=== PATIENT | female | born 1960 | race Caucasian/White ===

== ENCOUNTER → 2018-08-24 11:20 | Outpatient (CLI) | payer OTHER, SELFPAY ==
[2018-08-27 13:54] LABS: HPV Reflexed? NOT INDICATED
== END ==
PROVIDERS: Visit Provider Obstetrics & Gynecology
DX: Z12.4 Encounter for screening for malignant neoplasm of cervix (principal)
CPT/HCPCS: 88175; G0145

== ENCOUNTER → 2018-11-05 09:38 | Outpatient (CLI) | payer OTHER, SELFPAY ==
--- NOTE | 2018-11-05 09:42 | BI_ITS ---
MAMMOGRAPHY - BILATERAL SCREENING REASON FOR EXAM: Female, 57 years old. Routine annual screening examination. PERTINENT HISTORY: Aunt with breast cancer. History of prior ultrasound-guided right breast biopsy. TECHNIQUE: Digital bilateral breast billy (3D mammographic acquisition) in the CC and MLO projections. 2-D mediolateral oblique (MLO) and craniocaudad (CC) views of both breasts were obtained. CAD: Full Field Digital Mammography with Computer Added Detection was performed. COMPARISON: Comparison is made with prior study dated December 14, 2016 and December 18, 2016. FINDINGS: Breast Composition: The breasts are heterogeneously dense, which may obscure small masses. There are no dominant masses or suspicious calcifications. Stable 7.5 mm x 10.6 mm well-defined nodular density in the upper lateral anterior aspect of the right breast. This most likely represents a small lymph node. Stable calcifications in the central midportion of the left breast. A tissue clip marker is seen in the superior lateral retroareolar region of the right breast No other significant abnormalities are identified. There has been no significant change since the prior study. BI/SCREENING MAMM (CAD), BILAT IMPRESSION: Stable bilateral screening mammogram. Yearly follow-up mammogram recommended. (A) ASSESSMENT CATEGORY: BIRADS Category 2: Benign. A letter regarding these results will be sent to the patient by the facility within 30 days. Approximately 10% of breast cancers are not detected by mammography. A normal mammogram should not delay biopsy of a clinically suspicious abnormality. [id number] Electronically Signed: Michael Early MD at 9:45 EST , Service support ,
== END ==
PROVIDERS: Referring Provider Obstetrics & Gynecology; Visit Provider Obstetrics & Gynecology
DX: Z12.31 Encounter for screening mammogram for malignant neoplasm of breast (principal)
CPT/HCPCS: 77063; 77067

== ENCOUNTER → 2019-10-10 13:16 | Outpatient (CLI) | payer SELFPAY ==
[2019-10-16 20:07] LABS: Age Gdln ACOG Testing 30-65 (.)
[2019-10-17 09:40] LABS: HPV APTIMA, High Risk Negative (Negative)
[2019-10-17 09:41] LABS: HPV Reflexed? YES, CHARGE PATIENT
== END ==
PROVIDERS: Referring Provider Obstetrics & Gynecology; Visit Provider Obstetrics & Gynecology
DX: Z12.4 Encounter for screening for malignant neoplasm of cervix (principal)
CPT/HCPCS: 87624; 88175; G0145

== ENCOUNTER → 2020-03-28 08:32 | Outpatient (CLI) | payer SELFPAY ==
--- NOTE | 2020-03-28 08:36 | BI_ITS ---
MAMMOGRAPHY - BILATERAL SCREENING REASON FOR EXAM: Female, 59 years old. Routine annual screening examination. PERTINENT HISTORY: Aunt with breast cancer. TECHNIQUE: Digital bilateral breast cam (3D mammographic acquisition) in the CC and MLO projections. 2-D mediolateral oblique (MLO) and craniocaudad (CC) views of both breasts were obtained. CAD: Full Field Digital Mammography with Computer Added Detection was performed. COMPARISON: Comparison is made with prior examination dated November 05, 2018 and August 26, 2017. FINDINGS: Breast Composition: The breasts are heterogeneously dense, which may obscure small masses. There are no dominant masses or suspicious calcifications. 2 tissue markers are seen in the superior lateral anterior aspect of the right breast. Stable 7.5 mm x 9.6 mm well-defined nodule in the upper anterior lateral portion of the right breast where a central notch suggestive of a lymph node. Stable microcalcifications in the central upper aspect of the left breast. Stable benign-appearing bilateral axillary lymph nodes. No other significant abnormalities are identified. There has been no significant change since the prior study. BI/SCREEN MAMM (CAD) W/CAM BILAT IMPRESSION: Stable bilateral screening mammogram. Yearly follow-up mammogram recommended. (A) ASSESSMENT CATEGORY: BIRADS Category 2: Benign. A letter regarding these results will be sent to the patient by the facility within 30 days. Approximately 10% of breast cancers are not detected by mammography. A normal mammogram should not delay biopsy of a clinically suspicious abnormality. [id number] Electronically Signed: Michael Early, at 9:47 EDT , Service support ,
== END ==
PROVIDERS: Referring Provider Obstetrics & Gynecology; Visit Provider Obstetrics & Gynecology
DX: Z12.31 Encounter for screening mammogram for malignant neoplasm of breast (principal)
CPT/HCPCS: 77063; 77067

== ENCOUNTER → 2021-04-11 15:15 | Outpatient (CLI) | payer SELFPAY ==
--- NOTE | 2021-04-11 15:18 | BI_ITS ---
MAMMOGRAPHY - BILATERAL SCREENING REASON FOR EXAM: Female, 60 years old. Routine annual screening examination. PERTINENT HISTORY: Aunt with breast cancer. History of prior right ultrasound-guided breast biopsy. TECHNIQUE: Digital bilateral breast cam (3D mammographic acquisition) in the CC and MLO projections. 2-D mediolateral oblique (MLO) and craniocaudad (CC) views of both breasts were obtained. CAD: Full Field Digital Mammography with Computer Added Detection was performed. COMPARISON: Comparison is made with prior study dated 03/28/2020 and 11/05/2018. FINDINGS: Breast Composition: The breasts are heterogeneously dense, which may obscure small masses. There are no dominant masses or suspicious calcifications. Once again, 2 tissue markers are seen in the superior lateral anterior aspect of the right breast. Stable 7.5 mm x 1 mm well-defined nodule in the upper anterior lateral portion of the right breast. A central notch is seen suggestive of a lymph node. Stable microcalcifications in the central upper aspect of the left breast. No other significant abnormalities are identified. There has been no significant change since the prior study. BI/SCRN MAMM (CAD)W/CAM BILAT IMPRESSION: Stable bilateral screening mammogram. Yearly follow-up mammogram recommended. (A) ASSESSMENT CATEGORY: BIRADS Category 2: Benign. A letter regarding these results will be sent to the patient by the facility within 30 days. Approximately 10% of breast cancers are not detected by mammography. A normal mammogram should not delay biopsy of a clinically suspicious abnormality. [id number] Electronically Signed: Michael Early MD at 9:11 EDT , Service support ,
== END ==
PROVIDERS: PCP Nurse Practitioner Family; Referring Provider Nurse Practitioner Family; Visit Provider Nurse Practitioner Family
DX: Z12.31 Encounter for screening mammogram for malignant neoplasm of breast (principal)
CPT/HCPCS: 77063; 77067

== ENCOUNTER → 2022-07-03 | Outpatient (CLI) | payer SELFPAY ==
[2022-07-21 12:50] LABS: HPV APTIMA, High Risk Negative
== END | disposition home or self-care (01) ==
PROVIDERS: PCP Nurse Practitioner Family; Visit Provider Student in an Organized Health Care Education/Training Program
DX: Z12.4 Encounter for screening for malignant neoplasm of cervix (principal)
CPT/HCPCS: 87624; 88175; G0145

== ENCOUNTER → 2022-07-08 | Outpatient (CLI) | payer SELFPAY ==
--- NOTE | 2022-07-08 14:05 | BI_ITS ---
MAMMOGRAPHY - BILATERAL SCREENING REASON FOR EXAM: Female, 61 years old. Routine annual screening examination. PERTINENT HISTORY: Aunt with breast cancer. History of prior right needle breast biopsy. TECHNIQUE: Digital bilateral breast cam (3D mammographic acquisition) in the CC and MLO projections. 2-D mediolateral oblique (MLO) and craniocaudad (CC) views of both breasts were obtained. CAD: Full Field Digital Mammography with Computer Added Detection was performed. COMPARISON: Comparison is made with prior study 04/11/2021 and 03/28/2020. FINDINGS: Breast Composition: The breasts are heterogeneously dense, which may obscure small masses. There are no dominant masses or suspicious calcifications. Once again, 2 adjacent tissue marker seen in the anterior central lateral aspect of the right breast. Stable 7.5 mm x 1 mm well-defined nodule in the upper anterior lateral aspect of the right breast. This is suggestive of a small lymph node. Since prior study, there has been progression of microcalcifications in the central depth of the left breast. Biopsy recommended. No other significant abnormalities are identified. BI/SCRN MAMM (CAD)W/CAM BILAT IMPRESSION: Interval increase in the cluster microcalcification in the central portion of the left breast as described. Biopsy recommended. ASSESSMENT CATEGORY: BIRADS Category 4: Suspicious - Biopsy Should Be Considered. A letter regarding these results will be sent to the patient by the facility within 30 days. Approximately 10% of breast cancers are not detected by mammography. A normal mammogram should not delay biopsy of a clinically suspicious abnormality. [id number] Electronically Signed: Michael Early MD at 14:57 EDT ,
== END | disposition home or self-care (01) ==
LOC: OPBI 14:00
PROVIDERS: PCP Nurse Practitioner Family; Visit Provider Student in an Organized Health Care Education/Training Program
DX: Z12.31 Encounter for screening mammogram for malignant neoplasm of breast (principal); Z80.3 Family history of malignant neoplasm of breast
CPT/HCPCS: 77063; 77067

== ENCOUNTER → 2022-07-17 | Outpatient (CLI) | payer SELFPAY ==
--- NOTE | 2022-07-17 | BRBX_PTH ---
PATIENT: SHIRLEY ORO LOC: [facility] U#:[id number] AGE/SX: 61/F ROOM: RE07/17/[address]: Dr. Holly Pisano MD : 1960 BED: DIS: 07/17/2022 SPEC #: [id number] RECD: 07/17/22 13:43 STATUS: STAR REOlivia #: [id number] KAYA: 07/17/22 00:[address]: Holly Pisano DEPT: SURGICAL PATHOLOGY RECD BY: Garcia Martinez ENTERED: 07/17/22 13:43 SP TYPE: BREAST BX JOE DR: Sybil Sal, ASSISTANT PROFESSOR OF FORESTRY-C Tissues: Left breast, NOS Procedures: Surgery Specimen Level IV HEADER OPERATION: Left breast stereotactic biopsy PRE-OP DIAGNOSIS: Left breast microcalcifications central depth TISSUE SUBMITTED: Left breast core tissue ISCHEMIC TIME: 1 minute FIXATION TIME: 59.5 hours MICROSCOPIC DIAGNOSIS Left breast, stereotactic core biopsy: Hyalinized fibroadenoma with calcifications. Negative for atypia or malignancy. See comment. SJ:teo 07/20/2022 COMMENT Correlation with clinical, radiologic findings and appropriate follow up are necessary. MICROSCOPIC DESCRIPTION Slides are reviewed. GROSS DESCRIPTION Received in fixative is one container labeled with the patient's name and designated left breast. The specimen consists of multiple irregular and elongated fragments of mcclellan-yellow soft tissue that in aggregate measure 3 x 2.5 x 0.2 cm. The specimen is totally submitted in one cassette. / AM:eto 07/17/2022 TC:1 CPT: 77188
--- NOTE | 2022-07-17 08:31 | OP.PCM_ITS ---
Report of Operation Date of Procedure: 07/17/22 Pre-Operative Diagnosis: Left breast microcalcifications Post-Operative Diagnosis: Same Surgery/Procedure Performed:: Stereotactic left breast biopsy Surgeon: Holly Pisano Type of Anesthesia: Local Specimen's removed: left breast microcalcifications?central depth Estimated Blood Loss (mL): Minimal Description of Procedure: Procedure: Left stereotactic core biopsy Indications: 61year-old female with microcalcifications in the central depth of the left breast. Risk benefits were discussed the patient and she elected to proceed with stereotactic core biopsy with clip placement Description of procedure: Patient was brought into the mammography suite and laid prone on the stereotactic table. A timeout was completed verifying correct patient, procedure, site, specially, prior to beginning procedure. The left breast was prepped and draped in usual sterile fashion and using local anes thesia was obtained with 1% lidocaine with epi. Patient's left breast was positioned and placed into compression. Initial film showed calcifications are in the center of the compression paddle. 15? views were then taken. The calcifications were localized. The left breast was prepped draped in usual sterile fashion. An 8-gauge mammotome was set up according to the digital coordinates. The tract of the mammotome was anesthetized with local anesthesia and an incision was made with the 11 blade scalpel at the entry site. The mammotome was advanced to the prefire state. Pre-prior films were checked and verified. The mammotome was fired. Post fire films were also checked and verified. Biopsies were taken from 11:00 to 4:00. The specimen was x-rayed and the majority of the calcifications were within the specimen. Mammotome clip?bowtie was placed at the 12 o'clock position. The mammotome was removed from the breast. An additional films were taken which showed all calcifications were removed and a clip was in place. Pressure was held for hemostasis. Once hemostasis was assured the wound was dressed with Steri-Strips and OpSite. Additional 2 view mammography was used to verify clip. Clip was verified. The patient tolerated the procedure well and was discharged from the mammography suite good condition. Complications none
== END | disposition home or self-care (01) ==
PROVIDERS: PCP Nurse Practitioner Family; Visit Provider Surgery
DX: R92.0 Mammographic microcalcification found on diagnostic imaging of breast (principal); N60.22 Fibroadenosis of left breast
CPT/HCPCS: 19081; 88305; J7050; A4648

== ENCOUNTER 2022-08-13 06:00 | Day surgery (SDC) | payer SELFPAY ==
[2022-08-13] VITALS (7 sets, daily range): BP systolic 108–133; BP diastolic 56–71; PULSE 62–95; RESP 16; TEMP 36.1–36.8; O2SAT 93–99; BMI 30.2
--- NOTE | 2022-08-13 | EMB_PTH ---
PATIENT: SHIRLEY ORO LOC: [facility] [place] U#:[id number] AGE/SX: 61/F ROOM: RE08/13/[address]: Dr. Natalee Garay DO : 1960 BED: DIS: 08/13/2022 SPEC #: [id number] RECD: 08/13/22 12:37 STATUS: STAR JOSE #: [id number] KAYA: 08/13/22 00:[address]: Natalee Garay DEPT: SURGICAL PATHOLOGY RECD BY: Garcia Martinez ENTERED: 08/13/22 12:37 SP TYPE: ENDOM BX/C JOE DR: Alejandra Louis, ADVERTISING SOLICITOR-C Tissues: Endometrium, NOS Procedures: Surgery Specimen Level IV HEADER OPERATION: Hysteroscopy, dilation and curettage, polypectomy, Symphion PRE-OP DIAGNOSIS: Postmenopausal bleeding TISSUE SUBMITTED: Endometrial curettings and polyp MICROSCOPIC DIAGNOSIS Endometrial curettings and polyp: Polypoid fragments of simple hyperplasia without atypia. AM:teo 08/14/2022 MICROSCOPIC DESCRIPTION Slides are reviewed. GROSS DESCRIPTION Received in fixative is one container labeled with the patient's name and designated endometrial curettings and polyp. The specimen consists of multiple irregular and rubbery fragments of pink-white soft tissue that in aggregate measure 4 x 3 x 0.5 cm. The larger fragments are sectioned totally submitted along with the smaller fragments in two cassettes. / AM:teo 08/13/2022 TC:5 CPT: 45725
[2022-08-13] MEDS: Lactated Ringers 1,000 ML 15 ML IV (06:52)
--- NOTE | 2022-08-13 07:01 | HP.PCM.OB_ITS ---
History and Physical Date of Admission: 08/13/22 HPI: 61-year-old female presenting for hysteroscopy, dilation and curettage for postmenopausal bleeding. Denies fevers or chills, headache or vision changes, chest pain or shortness of breath, nausea or vomiting, diarrhea or constipation. Medical history 1. Cardiac Surgical history: Cholecystectomy, tonsillectomy Medications: Verapamil Family history: Noncontributory no issues with anesthesia Social history: Denies tobacco, alcohol, drug use Allergies: Aspirin, naproxen Review of system: Negative otherwise stated above Physical exam BP 133/60 heart rate 77, respirations 16 temp 98.2 degrees of Fahrenheit O2 sat 99% on room air General: No acute distress HEENT normocephalic, atraumatic Cardiac: Regular rate and rhythm Respiratory: Clear to auscultation bilaterally Abdomen: Soft, nontender nondistended Extremities: No edema Neurologic: Cranial nerves II through XII grossly intact, no focal deficits Musculoskeletal: Strength out of 5 throughout extremities Assessment/plan:61-year-old female presenting for hysteroscopy, dilation and curettage for postmenopausal bleeding. All risk, benefits, alternatives discussed with the patient. Risk include but not limited to: Risk of bleeding when transfusion, infection, injury to surrounding tissue including bowel/bladd er/uterine perforation, VTE, ICU admission. Patient aware and consented.
--- NOTE | 2022-08-13 08:19 | PCM.OPRPT ---
Report of Operation Date of Procedure: 08/13/22 Pre-Operative Diagnosis: Postmenopausal bleeding Post-Operative Diagnosis: Postmenopausal bleeding, endometrial polyp Surgery/Procedure Performed:: Hysteroscopy, dilation curettage, polypectomy Description of Surgical Findings:: Normal-appearing external genitalia. Good uterine descensus. Large endometrial polyp spanning from fundus to lower uterine segment and upper cervix. Type of Anesthesia: MAC Specimen's removed: Endometrial curettings, endometrial polyp Estimated Blood Loss (mL): 5 cc Fluids Replaced: 1000 cc Description of Procedure: Indication/risk/benefits: 61-year-old female with postmenopausal bleeding. Plan for hysteroscopy, dilation curettage. All risk, benefits, alternatives discussed with patient. Risk include but are not limited to: Risk of bleeding to the point transfusion, infection, injury to surrounding tissue including bowel/bladder/uterine perforation, VTE, ICU admission. Patient aware and consented. Procedure: Patient taken to the operating room and MAC anesthesia induced. Patient placed in the dorsal lithotomy position and prepped and draped in the usual sterile fashion. Weighted speculum placed in posterior vagina and Solo retractor used to visualize the cervix. Anterior lip of cervix grasped with Allis clamp. Cervix sequentially dilated. Hysteroscope placed through cervical canal with inspection of endometrial cavity noting findings as stated above. Hysteroscope removed. Attempted to remove polyp with polyp forceps, and long Heidi clamp. Portion of polyp able to be removed. Attempted removal with curettage. Minimal sample was removed with this manner. As unable to remove polyp with clamps or curetting, decision to utilize Symphion device was made. Symphion on was utilized to remove portion of the polyp, however a large amount of fluid loss was occurring back through the cervix, therefore the complete polypectomy was unable to be performed. Large amount of fluid was noted in the bucket, which was back flowing through the cervix. Due to this Symphion device was removed. Additional portion of polyp with forceps was completed. Decision to end case at that time was made. Allis clamp removed, cervix hemostatic. Retractors removed. At the end of the procedure all needle, lap, sponge counts were correct. Fluid deficit 500cc, majority of loss was backflow through dilated cervix. Urine output not measured.
--- NOTE | 2022-08-13 08:26 | DCINST_ITS ---
Discharge Instructions Diet Discharge Diet: No restrictions Activity Discharge Activity: Return to Normal Activity and May Shower May resume sexual activity in: 2 weeks Weight Bearing Status: Weight bearing as tolerated Lifting Restrictions: None Dressing / Incision Call your doctor if you observe: Fever of 101 or Higher, Change in Color, Inability to urinate, Using more than 1 pad per hour, Shortness of breath, Dizziness, Swelling in the ankles, Chest pain and Calf discomfort Follow Up Care Please Follow Up With: Natalee Garay DO When: 1-2 week postoperative visit Test Results: Test results from this visit will be discussed in further detail at your follow- up appointment, if applicable. Discharge Plan Admission Primary Reason for Your Visit: Hysteroscopy, dilation and currettage Attending Provider: Natalee Garay Primary Care Provider: Alejandra Loius NP Discharge Orders/Prescriptions Prescriptions: No Action verapamil 80 mg tablet 180 mg PO DAILY Referrals / Follow Up: Alejandra Louis NP, STATISTICAL MACHINE MECHANIC-C [Primary Care Provider] - Disposition Disposition (needs filled in before D/C Order can be placed): Home, Self Care
== END 2022-08-13 10:40 | disposition home or self-care (01) ==
LOC: SDC 06:05 → AC 06:08
PROVIDERS: PCP Nurse Practitioner Primary Care; Referring Provider Student in an Organized Health Care Education/Training Program; Visit Provider Student in an Organized Health Care Education/Training Program
PROC: 0UDB8ZZ Extraction of Endometrium, Via Natural or Artificial Opening Endoscopic (ICD-10-PCS; CPT 58558; principal; 2022-08-13 07:20)
DX: N95.0 Postmenopausal bleeding (principal); N85.01 Benign endometrial hyperplasia
CPT/HCPCS: 58558; 00952; 88305; J7120; J2405

== ENCOUNTER 2022-12-31 10:50 | Day surgery (SDC) | payer SELFPAY ==
[2022-12-25 11:18] LABS: Hematocrit 41.4 % (37-47); Hemoglobin 13.7 g/dL (12.0-15.0); Mean Corp Hgb Conc 33.1 g/dL (32-36); Mean Corpuscular Hgb 31.1 pg (27.0-32.0); Mean Corpuscular Volume 94.1 fL (81-99); Mean Platelet Vol. 8.9 fl (6.2-12.0); Platelet Count 348 K/mm3 (150-450); RBC Distribution Width CV 12.8 % (11.6-14.6); RBC Distribution Width SD 44.4 fl (35.1-43.9); White Blood Count 7.3 K/mm3 (4.4-11.0)
[2022-12-31] VITALS (7 sets, daily range): BP systolic 99–119; BP diastolic 53–70; PULSE 64–76; RESP 16–18; TEMP 36.6–37.1; O2SAT 96–98; BMI 30.2
[2022-12-31] MEDS: Lactated Ringers 1,000 ML 15 ML IV (11:30)
[2022-12-31 11:43] LABS: Anion Gap 8 (5-15); BUN 12 mg/dL (7-18); BUN/Creat Ratio 17.1 RATIO (10-20); Calcium,Total 9.5 mg/dL (8.5-10.1); Chloride 111 mmol/L (98-107); EST Glomerular Filtration Rate 90 mL/min (>60); Est Glom Filt Rate - Afr Amer 109 mL/min (>60); Estimated Creatinine Clearance 77.01 ml/min; Glucose 99 mg/dL (74-106); Potassium 3.9 mmol/L (3.5-5.1); Sodium Level 142 mmol/L (136-145)
--- NOTE | 2022-12-31 12:36 | HP.PCM.OB_ITS ---
History and Physical Date of Admission: 12/31/22 HPI: 62-year-old female with history of benign endometrial hyperplasia plan for hysteroscopy, dilation and curettage, polypectomy.? Denies headache or vision changes, chest pain or shortness of breath, nausea or vomiting, diarrhea constipation, fevers or chills. FRUIT PICKER history: Medical history: 1.? Benign endometrial hyperplasia 2. Cardiac Surgical history: 1.? Hysteroscopy, dilation and curettage, polypectomy 2. Cholecystectomy 3. Tonsillectomy No complications with anesthesia Medications: 1.? Medroxyprogesterone 2. Verapamil 3. Fluconazole Allergies: Aspirin and naproxen Social history: Denies tobacco, alcohol, drug use Family history: Noncontributory Physical exam: Vitals: Blood pressure 116/53, heart rate 75, respiratory rate 18, temp 98.5 ?F, oxygen saturation 97% on room air General: No acute distress HEENT: Normal cephalic/atraumatic, PERRLA Cardiorespiratory: No increased effort, clear to auscultation bilaterally, regular rate and rhythm Abdomen: Soft, nontender Extremities: No edema Neurologic: Cranial nerves II through XII grossly intact, no focal deficits Musculoskeletal: Strength out of 5 throughout all extremities Assessment/plan: 62-year-old female with history of benign endometrial hyperplasia plan for hysteroscopy, dilation and curettage, polypectomy. All risk, benefits, alternatives were discussed with the patient.? Risk include but are not limited to: Risk of bleeding to the point of transfusion, infection, injury to surrounding tissue including bowel/bladder potentially requiring prolonged Hong catheter use/major abdominal vessels, VTE, ICU admission.?
--- NOTE | 2022-12-31 12:40 | EMB_PTH ---
PATIENT: SHIRLEY ORO LOC: [facility] [place] U#:[id number] AGE/SX: 62/F ROOM: RE12/31/[address]: Dr. Natalee Garay DO : 1960 BED: DIS: 12/31/2022 SPEC #: [id number] RECD: 12/31/22 16:43 STATUS: STAR GARCIA #: [id number] KAYA: 12/31/22 12:[address]: Natalee Garay DEPT: SURGICAL PATHOLOGY RECD BY: Ashley Hudson ENTERED: 01/01/23 08:09 SP TYPE: ENDOM BX/C OT DR: Alejandra Louis, MERCHANDISE FOR RESALE PURCHASING AGENT-C Tissues: Endometrium, NOS Procedures: Surgery Specimen Level IV HEADER OPERATION: Hysteroscopy, D & C Symphion, polypectomy PRE-OP DIAGNOSIS: Endometrial hyperplasia TISSUE SUBMITTED: Endometrial curettings and polyp MICROSCOPIC DIAGNOSIS Endometrial curettings and polyp: Simple cystic hyperplasia without atypia. AM:teo 01/04/2023 COMMENT Reference is made to the patient's previous endometrial curettings and polyp ([id number]) in which similar findings were identified. MICROSCOPIC DESCRIPTION Slides are reviewed. GROSS DESCRIPTION Received in fixative is one container labeled with the patient's name and designated endometrial curettings and polyp. The specimen consists of multiple irregular fragments of mcclellan soft tissue mixed with mucoid tissue that in aggregate measure 7.5 x 3.0 x 0.3 cm. The entire specimen is submitted in three cassettes. / SJ:teo 01/03/2023 TC:5 CPT: 24024
--- NOTE | 2022-12-31 12:40 | DCINST_ITS ---
Discharge Instructions Diet Discharge Diet: No restrictions Activity Discharge Activity: Return to Normal Activity and May Shower May resume sexual activity in: 2 weeks Weight Bearing Status: Weight bearing as tolerated Lifting Restrictions: None Dressing / Incision Call your doctor if you observe: Fever of 101 or Higher, Change in Color, Inability to urinate, Using more than 1 pad per hour, Shortness of breath, Dizziness, Swelling in the ankles, Chest pain and Calf discomfort Follow Up Care Please Follow Up With: Natalee Garay DO When: 1-2 week postoperative visit Test Results: Test results from this visit will be discussed in further detail at your follow- up appointment, if applicable. Discharge Plan Admission Primary Reason for Your Visit: D&C, polypectomy Attending Provider: Natalee Garay Primary Care Provider: Alejandra Louis NP Discharge Orders/Prescriptions Prescriptions: No Action verapamil 80 mg tablet 180 mg PO DAILY medroxyprogesterone 10 mg Tablet 20 mg PO DAILY fluconazole 150 mg tablet 150 mg PO DAILY Label Comments: take 1 tablet by mouth every other day Referrals / Follow Up: Alejandra Louis NP, DEVULCANIZER OPERATOR-C [Primary Care Provider] - Disposition Disposition (needs filled in before D/C Order can be placed): Home, Self Care
--- NOTE | 2022-12-31 13:07 | PCM.OPRPT ---
Report of Operation Date of Procedure: 12/31/22 Pre-Operative Diagnosis: Benign endometrial hyperplasia Post-Operative Diagnosis: Benign endometrial hyperplasia Surgery/Procedure Performed:: Hysteroscopy, dilation curettage, polypectomy Description of Surgical Findings:: Normal-appearing external genitalia. Good uterine descensus. Cervix dilated to 1 cm. Large endometrial polyp. Cervical polyp. Bilateral tubal ostia noted after removal of polyp. Type of Anesthesia: MAC Specimen's removed: Endometrial and endocervical polyps Estimated Blood Loss (mL): 5cc Fluids Replaced: 700cc Description of Procedure: Indication/risk/benefits: 62-year-old female with history of benign endometrial hyperplasia plan for hysteroscopy, dilation and curettage, polypectomy. All risk, benefits, alternatives were discussed with the patient.? Risk include but are not limited to: Risk of bleeding to the point of transfusion, infection, injury to surrounding tissue including bowel/bladder potentially requiring prolonged Hong catheter use/major abdominal vessels, VTE, ICU admission. Patient aware and consented. Procedure: Patient taken to the operating room and MAC anesthesia induced. Patient placed in the dorsal lithotomy position and prepped and draped in the usual sterile fashion. Weighted speculum placed in posterior vagina and single-tooth tenaculum grasped posterior cervix. Moved tenaculum to anterior cervix.. Hysteroscope placed through the cervical canal and endometrial cavity visualized with findings above. Endometrial polyp removed in entirety using Symphion. Endocervical polyp removed. Hysteroscope removed. Single-tooth tenaculum removed. Oozing noted at the posterior tenaculum sites on the cervix, hemostatic with silver nitrate. At the end of the procedure all needle, lap, sponge counts were correct. Fluid deficit: 550 cc Urine output: 75 cc clear urine Complications None
[2022-12-31] MEDS: Silver Nitrate (BKC) 1 EACH (13:36)
== END 2022-12-31 14:45 | disposition home or self-care (01) ==
LOC: SDC 10:57 → AC 11:01
PROVIDERS: PCP Nurse Practitioner Primary Care; Visit Provider Student in an Organized Health Care Education/Training Program
PROC: 0UB98ZZ Excision of Uterus, Via Natural or Artificial Opening Endoscopic (ICD-10-PCS; CPT 58558; principal; 2022-12-31 12:25)
DX: N85.01 Benign endometrial hyperplasia (principal); I47.1 Supraventricular tachycardia
CPT/HCPCS: 58558; 00952; 36415; 80048; 85027; 86850; 86870; 86900; 86901; 88305; J7120; J2405

== ENCOUNTER → 2023-06-28 | Outpatient (CLI) | payer SELFPAY ==
[2023-06-30 14:09] LABS: HPV APTIMA, High Risk Negative (Negative)
== END | disposition home or self-care (01) ==
LOC: LABSPEC 12:15
PROVIDERS: PCP Nurse Practitioner Primary Care; Referring Provider Student in an Organized Health Care Education/Training Program; Visit Provider Student in an Organized Health Care Education/Training Program
DX: Z01.419 Encounter for gynecological examination (general) (routine) without abnormal findings (principal)
CPT/HCPCS: 87624; 88175; G0145

== ENCOUNTER → 2023-08-02 | Outpatient (CLI) | payer SELFPAY ==
--- NOTE | 2023-08-02 07:47 | BI_ITS ---
MAMMOGRAPHY - BILATERAL SCREENING REASON FOR EXAM: Female, 62 years old. Routine annual screening examination. PERTINENT HISTORY: Aunt with breast cancer. Prior left stereotactic breast biopsy. Prior right ultrasound-guided breast biopsy. TECHNIQUE: Digital bilateral breast cam (3D mammographic acquisition) in the CC and MLO projections. 2-D mediolateral oblique (MLO) and craniocaudad (CC) views of both breasts were obtained. CAD: Full Field Digital Mammography with Computer Added Detection was performed. COMPARISON: Comparison is made with prior study of July 08, 2022 and April 11, 2021. FINDINGS: Breast Composition: The breasts are heterogeneously dense, which may obscure small masses. There are no dominant masses or suspicious calcifications. A tissue clip marker is seen within calcifications in the deep upper slightly outer aspect of the left breast. The number of calcifications have decreased since prior study. 2 adjacent tissue clip markers are seen in the retrocrural lateral temporal region of the right breast. Stable 7.5 mm x 10 mm well-defined nodule in the upper anterior lateral aspect of the right breast. No other significant abnormalities are identified. BI/SCRN MAMM (CAD)W/CAM BILAT IMPRESSION: Stable bilateral screening mammogram. Yearly follow-up mammogram recommended. (A) ASSESSMENT CATEGORY: BIRADS Category 2: Benign. A letter regarding these results will be sent to the patient by the facility within 30 days. Approximately 10% of breast cancers are not detected by mammography. A normal mammogram should not delay biopsy of a clinically suspicious abnormality. [id number] Electronically Signed: Michael Early MD at 9:12 EDT ,
== END | disposition home or self-care (01) ==
LOC: OPBI 07:43
PROVIDERS: PCP Nurse Practitioner Primary Care; Referring Provider Nurse Practitioner Family; Visit Provider Nurse Practitioner Family
DX: Z12.31 Encounter for screening mammogram for malignant neoplasm of breast (principal); Z80.3 Family history of malignant neoplasm of breast
CPT/HCPCS: 77063; 77067